=== PATIENT | female | born 1980 | race African-American/Black ===

== ENCOUNTER → 2016-12-09 | Outpatient (CLI) | payer OTHER ==
[~2016-12-09] MED LIST: CLR10 PO; HYDR-5688 PO; IBUP600T44 PO; OXYC-57 PO; PRENTAB26 PO
== END | disposition home or self-care (01) ==
LOC: C.LABSPEC 15:45
PROVIDERS: ATTEND Obstetrics & Gynecology
DX: Z34.83 Encounter for supervision of other normal pregnancy, third trimester (principal)

== ENCOUNTER 2016-12-26 19:23 | Outpatient (CLI) | payer OTHER ==
[~2016-12-26] VITALS: Ht 160 cm; Wt 74.0 kg
[~2016-12-26 19:23] MED LIST changes: -CLR10 PO; -HYDR-5688 PO; -OXYC-57 PO
[2016-12-26 20:16] VITALS: Ht 160 cm; Wt 74.0 kg
[2016-12-26] MEDS ORDERED: CLR10 PO (20:17)
== END 2016-12-26 20:51 | disposition home or self-care (01) ==
LOC: C.OPB 19:23 → C.LD 19:24 → C.OPB 20:51
PROVIDERS: ATTEND Obstetrics & Gynecology
DX: O62.9 Abnormality of forces of labor, unspecified (principal); O99.89 Other specified diseases and conditions complicating pregnancy, childbirth and the puerperium; N89.8 Other specified noninflammatory disorders of vagina; Z3A.38 38 weeks gestation of pregnancy

== ENCOUNTER 2016-12-27 09:14 | Inpatient (IN) | payer OTHER ==
[2016-12-27] VITALS (13 sets, daily range): BP systolic 98–108; BP diastolic 67–74; PULSE 73–96; TEMP 36.6–36.9; O2SAT 95–100; Ht 160 cm; Wt 89.5 kg
[~2016-12-27] VITALS: Ht 160 cm; Wt 89.5 kg
[~2016-12-27 09:14] MED LIST changes: +CLR10 PO; -IBUP600T44 PO
[2016-12-27] MEDS ORDERED: MoRPHine SULFATE PF 1 MG/ML 10 ML AMP/VIAL ONE (09:43)
[2016-12-27] MEDS ORDERED: FENTANYL CITRATE INJ 50 MCG/1 ML 2 ML VIAL ONE (09:43)
[2016-12-27] MEDS ORDERED: CITRIC ACID/SODIUM CITRATE 15 ML UDC PO ONE (09:45)
[2016-12-27] MEDS ORDERED: CEFAZOLIN IV 2,000 MG in DEXTROSE 5% 50ML 50 ML IV SCH (09:45)
[2016-12-27 10:03] LABS: BASO % 0.1 %; BASO ABS # 0.01 K/uL (0-0.2); COMPLETE YES; EOS % 0.3 %; HEMATOCRIT 34.2 % (37-47); IG% 0.9 %; LYMPH % 12.6 %; MEAN CELL VOLUME 78.8 fL (80-100); MEAN PLATELET VOLUME 9.1 fL (7.4-10.4); NEUT % 80.1 %; PLATELET COUNT 274 K/uL (130-400); RED BLOOD COUNT 4.34 M/uL (4.2-5.4); WHITE BLOOD COUNT 11.12 K/uL (4.8-10.8)
[2016-12-27] MEDS ORDERED: NALOXONE HCL INJ 0.08 MG in SYRINGE 1.8 ML IV PRN (10:25)
[2016-12-27] MEDS ORDERED: SODIUM CHLORIDE 0.9% 1000ML 1,000 ML IV PRN (10:25)
[2016-12-27] MEDS ORDERED: LACTATED RINGER'S 1000ML 500 ML IV PRN (10:25)
[2016-12-27] MEDS ORDERED: NALOXONE HCL INJ 1 MG in SODIUM CHLORIDE 0.9% 1000ML 1,000 ML IV PRN (10:25)
[2016-12-27] MEDS ORDERED: EpHEDrine SULFATE INJ 50 MG/ML AMP IV PRN (10:30)
[2016-12-27] MEDS ORDERED: ONDANSETRON INJ 2 MG/ML 2 ML VIAL IV PRN (10:30)
[2016-12-27] MEDS ORDERED: DiphenhydrAMINE HCL 50 MG/ML VIAL IV PRN ×2 (10:30)
[2016-12-27] MEDS ORDERED: NALOXONE HCL 0.4 MG/1 ML VIAL/CARP IV PRN (10:30)
[2016-12-27] MEDS ORDERED: METOCLOPRAMIDE HCL INJ 10 MG in SODIUM CHLORIDE 0.9% 50ML 50 ML IV PRN (10:30)
[2016-12-27] MEDS ORDERED: NALBUPHINE HCL INJ 10 MG/ML AMP IV PRN (10:30)
[2016-12-27] MEDS ORDERED: PROMETHAZINE HCL INJ 12.5 MG in SODIUM CHLORIDE 0.9% 50ML 50 ML IV PRN (10:30)
[2016-12-27] MEDS ORDERED: MoRPHine SULFATE PF 1 MG/ML 10 ML AMP/VIAL EPI PRN (10:30)
[2016-12-27] MEDS ORDERED: MoRPHine SULFATE 2 MG/ML CARP IV PRN (10:30)
[2016-12-27] MEDS ORDERED: NO NARCOTICS OR SEDATIVES SCH (10:30)
[2016-12-27] MEDS ORDERED: OXYTOCIN INJ 10 UNITS/ML VIAL ONE (10:40)
[2016-12-27] MEDS ORDERED: KETOROLAC TROMETHAMINE 30 MG/ML VIAL ONE (10:40)
[2016-12-27] MEDS ORDERED: ONDANSETRON INJ 2 MG/ML 2 ML VIAL ONE (10:40)
[2016-12-27] MEDS ORDERED: MAGNESIUM HYDROXIDE SUSP 30 ML UDC PO PRN (11:15)
--- NOTE | 2016-12-27 11:21 | [facility] Post Operative Brief Note ---
Immediate Operative Summary Operative Date Dec 27, 2016. Pre-Operative Diagnosis Intrauterine at 38 6/7 weeks, in labor, for repeat caesarean section Post-Operative Diagnosis Same as pre-op Procedure(s) Performed Repeat low uterine transverse incision caesarean section; delivery of live male infant at 1031 Surgeon Wayne Ge DO Patient Access Director Surgeon(s) Jaylyn Alvarado RN Estimated Blood Loss 500 ml Findings Viable male , Wt 8#8.5oz Apgars 8/9. Some adhesive disease, peritoneum to uterus, bladder to uterus. Normal appearing tubes/ovaries. Specimens A: Placenta: hold B: Cord blood C: Cord blood gases Drains thorpe, clear yellow Anesthesia spinal Complication(s) None Disposition L&D
--- NOTE | 2016-12-27 12:18 | OPERATIVE REPORT ---
DATE OF OPERATION: 12/27/2016 PREOPERATIVE DIAGNOSES: 1. Intrauterine at 38 weeks 6 days. 2. Spontaneous labor. 3. History of section x2. POSTOPERATIVE DIAGNOSIS: Same. PROCEDURE PERFORMED: Repeat low transverse section. ANESTHESIA: Spinal anesthesia. SURGEON: Alice Ge DO SEMICONDUCTOR WAFER INSPECTOR: Lela Alvarado RN. ESTIMATED BLOOD LOSS: 500 mL FINDINGS: Viable male with Apgars 8 and 9, weight 8 pounds 8-1/2 ounces. Some adhesive disease with peritoneum adhesed to the uterus and bladder adhesed to uterus, normal appearing tubes and ovaries. SPECIMENS: Placenta hold cord blood and cord gases. DRAINS: Diaz, clear yellow. ANESTHESIA: Spinal. COMPLICATIONS: None. DISPOSITION: Labor and delivery in stable and good condition. INDICATIONS FOR PROCEDURE: The patient is a 36-year-old G3, P2-0-0-2 at 38 weeks 6 days who was scheduled for repeat section; however, came in today in spontaneous labor. DESCRIPTION OF PROCEDURE: The patient was seen in the preoperative holding area where risks, benefits, alternatives to surgery were reviewed. She had previously signed informed consent in the office. This consent was resigned in today's charting. She was taken to the operating room where spinal anesthesia was introduced. She was prepared and draped in usual sterile fashion in the supine position with a leftward tilt, 2 grams of Ancef was infused prior to surgery. Timeout was confirmed. A Pfannenstiel skin incision was made with a scalpel and carried through to the underlying layer of fascia with the Bovie. The fascia was nicked at midline and using Bovie over hemostat technique, the incision was extended. The anterior aspect of the fascial incision was grasped with Emilie clamps x2, elevated off the underlying rectus abdominis muscle and dissected bluntly and sharply. In a similar fashion, the inferior aspect of the incision was dissected. The rectus muscles were at midline with hemostats and Bovie and the peritoneum was entered with hemostats. The bladder blade was placed. Adhesions on the anterior uterus were taken down with Metzenbaum scissors and the bladder flap was dissected. The bladder blade was replaced. A new scalpel was used to make a low transverse incision. This incision was extended cephalad caudad manually. The infant was delivered from a cephalic presentation. The head delivered followed by the shoulders and the body. No nuchal cord was noted. The cord was doubly clamped and cut, spontaneous cry was heard on the field. The baby was handed off to the pediatrics team. A cord segment was retained for cord gases. Cord blood was obtained. Placenta was delivered spontaneously intact with a 3-vessel cord. The uterus was exteriorized and cleared of all clots and debris. The hysterotomy incision was reapproximated using 0 Vicryl in a running locked stitch. There was a small extension into the cervix. This was also reapproximated using 0 Vicryl in a running stitch, a second layer of the same suture was used to imbricate the hysterotomy. The posterior uterus was evaluated and the uterus was returned to the abdomen. The gutters were cleared of all clots and debris. The hysterotomy incision was reinspected and noted to be hemostatic. The fascia was then reapproximated using 0 Vicryl in a running stitch, the subcutaneous tissue was closed using 2-0 plain gut in a running stitch and the skin was reapproximated using 4-0 Vicryl in a in a running subcuticular stitch. Steri-Strips were applied. The patient tolerated the procedure well and was taken to the recovery room in stable and good condition. I attest to the content of the Intraoperative Record and any orders documented therein. Any exceptio ns are noted below.
[2016-12-27] MEDS ORDERED: OXYTOCIN INJ 30 UNITS in LACTATED RINGER'S 1000ML 1,000 ML IV SCH (12:45)
[2016-12-27] MEDS: MEPERIDINE HCL 25 MG/ML CARP IV PRN ×2 (12:52→13:41)
--- NOTE | 2016-12-27 13:33 | Anesthesiology Progress Note ---
Anesthesia Post Op Note Date & Time Dec 27, 2016 at 13:33 Vital Signs Pain Intensity: 6.0 Notes Mental Status: alert / awake / arousable, participated in evaluation Pt Amnestic to Procedure: Yes Nausea / Vomiting: adequately controlled Pain: adequately controlled Airway Patency, RR, SpO2: stable & adequate BP & HR: stable & adequate Hydration State: stable & adequate Anesthetic Complications: no major complications apparent
[2016-12-27] MEDS: SIMETHICONE 80 MG CHEW PO SCH ×3 (13:42→19:39)
[2016-12-27] MEDS: KETOROLAC TROMETHAMINE 30 MG/ML VIAL IV. PRN (19:38)
[2016-12-27] MEDS: DOCUSATE SODIUM 100 MG CAP PO SCH (19:39)
[2016-12-28] VITALS (8 sets, daily range): BP systolic 90–95; BP diastolic 60–69; PULSE 86–108; TEMP 36.5–36.8; O2SAT 96–100
[2016-12-28] MEDS: KETOROLAC TROMETHAMINE 30 MG/ML VIAL IV. PRN (02:44)
[2016-12-28] MEDS ORDERED: DC INTRASPINAL MORPHINE ONE (04:00)
[2016-12-28] MEDS ORDERED: DiphenhydrAMINE HCL 50 MG/ML VIAL IV PRN (04:01)
[2016-12-28] MEDS ORDERED: ONDANSETRON INJ 2 MG/ML 2 ML VIAL IV PRN (04:01)
[2016-12-28] MEDS ORDERED: PROMETHAZINE HCL INJ 25 MG in SODIUM CHLORIDE 0.9% 50ML 50 ML IV PRN (04:01)
[2016-12-28] MEDS ORDERED: OXYCODONE/ACETAMINOPHEN 5-325 TAB PO PRN ×2 (04:01)
[2016-12-28] MEDS ORDERED: KETOROLAC TROMETHAMINE 30 MG/ML VIAL IV. PRN (04:01)
[2016-12-28 06:24] LABS: BASO % 0.1 %; BASO ABS # 0.01 K/uL (0-0.2); COMPLETE YES; EOS % 0.5 %; HEMATOCRIT 27.8 % (37-47); IG% 0.4 %; LYMPH % 10.2 %; LYMPH ABS # 1.41 K/uL (1.2-3.4); MEAN CELL VOLUME 78.8 fL (80-100); MEAN CORPUSCULAR HEMOGLOBIN 26.1 pg (25-34); MEAN CORPUSCULAR HGB CONC 33.1 g/dl (32-36); MEAN PLATELET VOLUME 8.7 fL (7.4-10.4); MONO % 7.8 %; PLATELET COUNT 186 K/uL (130-400); RED BLOOD COUNT 3.53 M/uL (4.2-5.4); WHITE BLOOD COUNT 13.89 K/uL (4.8-10.8)
[2016-12-28] MEDS: SIMETHICONE 80 MG CHEW PO SCH ×4 (08:06→20:00)
[2016-12-28] MEDS: DOCUSATE SODIUM 100 MG CAP PO SCH ×2 (08:06→21:42)
[2016-12-28] MEDS: IBUPROFEN 600 MG TAB PO PRN ×3 (08:07→21:43)
--- NOTE | 2016-12-28 08:39 | Progress Note ---
Subjective Dec 28, 2016. Subjective conversation w/ patient, physical exam Ambulation: ambulating normally Voiding: no voiding problems Passing Gas: Yes Diet Tolerance: Regular Diet Lochia: Small Feeding Type: Breast Feeding Pain: 01/09 Review of Systems Constitutional: No chills, No fever, No weight loss Respiratory: No cough, No shortness of breath Cardiac: No chest pain, No claudication Objective Vital Signs Date Time Temp Pulse Resp B/P Pulse Ox O2 Delivery O2 Flow Rate FiO2 12/28/16 07:30 Room Air 12/28/16 07:30 36.7 86 20 92/60 100 Room Air 12/28/16 03:45 36.8 87 18 90/61 97 Room Air 12/28/16 03:30 18 98 12/28/16 02:30 16 97 12/28/16 01:30 16 96 12/28/16 00:30 16 96 12/27/16 23:35 100 Room Air 12/27/16 23:35 36.6 96 18 100/70 100 Room Air 12/27/16 23:35 18 100 12/27/16 22:30 18 98 12/27/16 21:30 16 95 12/27/16 20:30 18 97 12/27/16 20:15 36.6 83 18 98/67 98 Room Air 12/27/16 19:30 18 98 12/27/16 18:30 18 100 12/27/16 17:30 18 98 12/27/16 16:30 16 100 12/27/16 15:45 36.9 73 16 102/71 98 Room Air 12/27/16 15:45 98 Room Air 12/27/16 15:30 16 98 12/27/16 15:00 20 98 12/27/16 14:00 36.9 82 16 108/74 95 Room Air 12/27/16 14:00 16 98 12/27/16 14:00 95 Room Air Physical Exam General Appearance: WELL-APPEARING, NO APPARENT DISTRESS Respiratory/Chest: lungs clear, no accessory muscle use Cardiovascular: regular rate, rhythm, + systolic murmur (soft 2/6 over aortic area) Fundus: Firm, Non-Tender, Relation to Umbilicus (at the umbilicus) Incision Description: Clean, Dry & Intact Extremities: non-tender, no calf tenderness Laboratory Results Last 24 Hours Test 12/27/16 09:50 12/28/16 05:50 White Blood Count 11.12 K/uL 13.89 K/uL Red Blood Count 4.34 M/uL 3.53 M/uL Hemoglobin 11.3 g/dL 9.2 g/dL Hematocrit 34.2 % 27.8 % Mean Corpuscular Volume 78.8 fL 78.8 fL Mean Corpuscular Hemoglobin 26.0 pg 26.1 pg Mean Corpuscular Hemoglobin Concent 33.0 g/dl 33.1 g/dl Platelet Count 274 K/uL 186 K/uL Mean Platelet Volume 9.1 fL 8.7 fL Neutrophils (%) (Auto) 80.1 % 81.0 % Lymphocytes (%) (Auto) 12.6 % 10.2 % Monocytes (%) (Auto) 6.0 % 7.8 % Eosinophils (%) (Auto) 0.3 % 0.5 % Basophils (%) (Auto) 0.1 % 0.1 % Neutrophils # (Auto) 8.91 K/uL 11.26 K/uL Lymphocytes # (Auto) 1.40 K/uL 1.41 K/uL Monocytes # (Auto) 0.67 K/uL 1.09 K/uL Eosinophils # (Auto) 0.03 K/uL 0.07 K/uL Basophils # (Auto) 0.01 K/uL 0.01 K/uL RDW Standard Deviation 40.4 fL 41.1 fL RDW Coefficient of Variation 14.2 % 14.4 % Immature Granulocyte % (Auto) 0.9 % 0.4 % Immature Granulocyte # (Auto) 0.10 K/uL 0.05 K/uL Assessment and Plan Post-Op Day#: 1 Continue Routine Care: s/p C section Day 1 - vitals reviewed and wnl - Hgb 9.2 today - blood: O+, GBS-, Rubella immune - encourage ambulation, monitor lochia, and encourage breast feeding - patient doing well clinically - will change pain meds to norco as patient feels uneasy with percocet - CONTINUE ROUTINE POST C SECTION CARE Resident Physician Supervision Note: I was present with Dr. Phillips during the history and exam. I discussed the case with the resident and agree with the findings and plan as documented in the note. Any exceptions or clarifications are listed here: POD#1 doing well. Routine postop care. Increase ambulation and PO hydration today. Documented By: Alice Ge
[2016-12-28] MEDS: HYDROCODONE/ACETAMOPHEN 5/325MG TAB PO PRN ×3 (10:31→21:43)
[2016-12-28] MEDS ORDERED: BISACODYL 5 MG TABEC PO ONE (22:00)
[2016-12-29] MEDS: HYDROCODONE/ACETAMOPHEN 5/325MG TAB PO PRN ×4 (02:02→20:12)
[2016-12-29] MEDS: IBUPROFEN 600 MG TAB PO PRN ×4 (02:02→20:13)
[2016-12-29] MEDS ORDERED: BISACODYL 10 MG SUPP PR PRN (07:00)
[2016-12-29 07:32] VITALS: BP 89/61; PULSE 85; TEMP 36.4; O2SAT 99
--- NOTE | 2016-12-29 07:32 | Progress Note ---
Subjective Dec 29, 2016. Subjective conversation w/ patient, physical exam Ambulation: ambulating normally Voiding: no voiding problems Passing Gas: Yes Diet Tolerance: Regular Diet Lochia: Small Feeding Type: Breast Feeding Review of Systems Constitutional: No chills, No fever Respiratory: No cough, No shortness of breath Cardiac: No chest pain, No claudication Objective Vital Signs Date Time Temp Pulse Resp B/P Pulse Ox O2 Delivery O2 Flow Rate FiO2 12/28/16 23:30 36.6 91 20 95/66 Room Air 12/28/16 23:30 99 Room Air 12/28/16 15:45 36.5 108 20 95/69 Room Air 12/28/16 15:45 Room Air 12/28/16 07:30 Room Air 12/28/16 07:30 36.7 86 20 92/60 100 Room Air Physical Exam General Appearance: WELL-APPEARING, NO APPARENT DISTRESS Respiratory/Chest: lungs clear, no accessory muscle use Cardiovascular: regular rate, rhythm, no murmur Fundus: Firm, Non-Tender, Relation to Umbilicus (1 cm below umbilicus) Incision Description: Clean, Dry & Intact Extremities: non-tender, no calf tenderness Assessment and Plan Post-Op Day#: 2 Continue Routine Care: s/p C section Day 2 - vitals reviewed and wnl - Hgb 9.2 yesterday - blood: O+, GBS-, Rubella immune - encourage ambulation, monitor lochia, and encourage breast feeding - patient doing well clinically - CONTINUE ROUTINE POST C SECTION CARE Resident Physician Supervision Note: I was present with Dr. Phillips during the history and exam. I discussed the case with the resident and agree with the findings and plan as documented in the note. Any exceptions or clarifications are listed here: [None] Documented By: Lidya Harrison
[2016-12-29] MEDS: SIMETHICONE 80 MG CHEW PO SCH ×4 (08:18→20:11)
[2016-12-29] MEDS: DOCUSATE SODIUM 100 MG CAP PO SCH ×2 (08:18→20:11)
[2016-12-29 09:19] VITALS: O2SAT 99
[2016-12-29] MEDS: LORATADINE 10 MG TAB PO SCH (13:45)
[2016-12-29 16:20] VITALS: BP 109/76; PULSE 101; TEMP 36.5
[2016-12-30 00:20] VITALS: BP 122/81; PULSE 79; TEMP 36.4
[2016-12-30] MEDS: HYDROCODONE/ACETAMOPHEN 5/325MG TAB PO PRN ×3 (00:28→10:41)
[2016-12-30] MEDS: IBUPROFEN 600 MG TAB PO PRN ×3 (00:28→10:41)
[2016-12-30] MEDS ORDERED: OXYC-57 PO (07:10)
--- NOTE | 2016-12-30 07:13 | Progress Note ---
Subjective Dec 30, 2016. Subjective conversation w/ patient, physical exam Ambulation: ambulating normally Voiding: no voiding problems Passing Gas: Yes Diet Tolerance: Regular Diet Lochia: Small Feeding Type: Breast Feeding Review of Systems Constitutional: No chills, No fever Respiratory: No cough, No shortness of breath Cardiac: No chest pain, No claudication Objective Vital Signs Date Time Temp Pulse Resp B/P Pulse Ox O2 Delivery O2 Flow Rate FiO2 12/30/16 00:20 Room Air 12/30/16 00:20 36.4 79 20 122/81 Room Air 12/29/16 16:20 36.5 101 20 109/76 12/29/16 16:20 Room Air 12/29/16 09:19 99 Room Air 12/29/16 08:25 Room Air 12/29/16 07:32 36.4 85 15 89/61 99 Physical Exam General Appearance: WELL-APPEARING, NO APPARENT DISTRESS Respiratory/Chest: lungs clear, no accessory muscle use Cardiovascular: regular rate, rhythm, no murmur Fundus: Firm, Non-Tender, Relation to Umbilicus (AT UMBILICUS) Extremities: non-tender, no calf tenderness Assessment and Plan Post-Op Day#: 3 Continue Routine Care: s/p C section Day 3 - vitals reviewed and wnl - Hgb 9.2 two days ago - blood: O+, GBS-, Rubella immune - encourage ambulation, monitor lochia, and encourage breast feeding - patient doing well clinically - patient counselled on discharge instructions - PATIENT DISCHARGED TODAY Resident Physician Supervision Note: I was present with Dr. Phillips during the history and exam. I discussed the case with the resident and agree with the findings and plan as documented in the note. Any exceptions or clarifications are listed here: Doing well, plan d/ c. Documented By: Jazzy Kohler
[2016-12-30 08:00] VITALS: BP 111/76; PULSE 77; TEMP 36.5; O2SAT 99
[2016-12-30] MEDS: DOCUSATE SODIUM 100 MG CAP PO SCH (08:30)
[2016-12-30] MEDS: SIMETHICONE 80 MG CHEW PO SCH ×2 (08:31→12:37)
--- NOTE | 2016-12-30 08:33 | Discharge Instructions ---
Discharge Instructions Date of Service Dec 30, 2016. Admission Reason for Admission: Spontaneous Onset Of Labor Discharge Discharge Diagnosis / Problem: C- section Discharge Goals Goal(s): Routine recovery after delivery Medications Continue Dispensed Medications: supercream, dermaplast, tucks, lansinoh Activity Recommendations Activity Limitations: per Instructions/Follow-up section . Instructions / Follow-Up Instructions / Follow-Up ACTIVITY RECOMMENDATIONS: * Gradual return to full activity over the next 2-3 weeks. * No lifting - nothing heavier than baby over the next 2-3 weeks. * Do not engage in vigorous exercise, sexual activity or sports until cleared by your physician. * Do not drive or operate any motorized equipment until cleared by your physician. * You may shower/bathe daily. MEDICATIONS: For discomfort or pain, you may use Acetaminophen (Tylenol), Ibuprofen (Advil), or Naproxen (Aleve) following the package directions. For constipation you may use Colace following the package directions. BREAST CARE: If you are not breast feeding: * Wear a supportive bra 24 hours a day for one to two weeks. * Avoid stimulating your breasts and nipples as much as possible during the first few weeks after delivery. * When taking a shower, have the warm water hit your back, not breasts. * When your breasts feel full, apply ice packs. Usually three to four times a day helps ease the discomfort. * Take a mild pain medication (Tylenol / Motrin) when you are uncomfortable. If breast feeding: * Use breast milk to lubricate nipples. Lansinoh cream may be used for sore nipples. You do not need to remove cream prior to breast feeding. If using a different brand of cream, check the label for directions regarding removal of cream prior to nursing. * Wear a supportive bra. * If having problems with breasts or breast feeding, call a cancer program consultant or your health care provider. EPISIOTOMY CARE: After delivery, if you have an episiotomy (stitches), the following steps will ease discomfort and aid healing. * For the first 24 hours after delivery, place ice packs next to your episiotomy to help reduce swelling. * After the first 24 hour-period, sitz baths, either portable or in the tub, are suggested. A shower with a shower arm sprayed over the episiotomy may be comforting. * Nohemy care should be done after each voiding and bowel movement. Squirt warm water from a plastic bottle over the perineum (region of the body between the anus and urinary opening) and pat dry. * Use Dermoplast to ease discomfort. Shake container. [place] directly over the episiotomy. Place a Tucks on a clean sanitary pad next to your episiotomy. SPECIAL CARE INSTRUCTIONS: When you are discharged from the hospital, it is important for you to follow the instructions listed below: * During the first week at home, you should be able to care for yourself and your baby. In addition, the usual light household activities are encouraged. * Limit your activities to the way you feel. Do not try to clean the house or move furniture. Be sensible. * If you actively engage in sports and have done so up until the time of your delivery, you may resume these activities as soon as you feel able. This may take up to one month or even longer. Use good judgment. * Continue to take your vitamins for at least six weeks after the of your baby. * Your diet need not be limited unless you were on a special diet before your delivery. Breast-feeding mothers need around 2500 calories per day and at least 64-80 ounces of fluid per day (8 to 10 glasses). * You should eat foods from the four major food groups. Crash diets or fad diets are to be avoided. Eating lean meats, fresh fruits and vegetables, low-fat dairy products, high fiber foods and a regular exercise program, will help you get back to your pre- weight without putting your health at risk. * Constipation is sometimes a problem after delivery. Take a mild laxative as needed. If breast feeding, Milk of Magnesia is acceptable to use. You may use a suppository or Fleets enema if no episiotomy. * A daily shower or tub bath is suggested. Be sure to thoroughly and gently dry the perineum. * A bloody vaginal discharge will usually continue until around four weeks post . A small amount of bleeding may continue for as long as six weeks. Vaginal discharge changes from the bright red bleeding after delivery to pink then brownish and finally yellowish-pink before becoming white and disappearing. * Bleeding may increase with activity. Your first period may come in 4-8 weeks. If you are breast feeding, your period may be delayed even longer. * [place] (sex) can begin whenever both you and your partner feel comfortable and do not have any form of genital infection. It is recommended that you wait at least six weeks for internal and external healing to occur. If you have questions, please talk to your health care practitioner. A condom should be used to prevent infection and . * Foreplay, gentle intercourse and lubrication is very important the first several times to prevent pain. A water-based lubricant such as K-Y jelly or Astroglide may be used. * If you have RH negative blood and your baby is RH positive, you will receive RHOGAM by injection prior to discharge. The nurse will give you a card to keep with you that has the date and place that you received RHOGAM after delivery. * During your care, you had a Rubella screen done to check for the presence of rubella antibodies in your blood. If your test was negative, you will receive a Rubella vaccine prior to discharge. This vaccine may cause a fever, soreness at the injection site and flu-like symptoms. If these symptoms persist, notify your health care practitioner. is not advised for one month after a Rubella vaccine. * Verbalizes understanding of car seat law as reviewed with patient nursing. * Car Seat hand-out given and reviewed with patient by nursing. * Shaken baby information reviewed with patient by nursing. Call you doctor if: * Heavy bleeding (saturating several pads an hour) or passing clots the size of your fist. * A fever >101 degrees F (38.3 degrees C) on two occasions four hours apart and /or chills. * Unusual pain in the pelvic or vaginal areas. * "Baby Blues" lasting longer than two weeks. If you have any questions or concerns, call your health care practitioner at . FOLLOW UP VISIT: * Please call the office at to schedule a 6 week examination. It is important you keep this appointment. It is important for you to make arrangements for either yearly or twice yearly check-ups thereafter. Current Hospital Diet Patient's current hospital diet: Regular OB Diet Discharge Diet Recommended Diet: Regular Diet Procedures Procedures Performed: Repeat low uterine transverse incision caesarean section; delivery of live male at 1031 Pending Studies Studies pending at discharge: no Medical Emergencies . Who to Call and When: Medical Emergencies: If at any time you feel your situation is an emergency, please call 911 immediately. . Non-Emergent Contact Non-Emergency issues call your: Primary Care Provider, Memory Care Program Director . . "Provider Documentation" section prepared by Alcides Phillips. VTE Core Measure Inpt VTE Proph given/why not?: Treatment not indicated
[2016-12-30] MEDS: LORATADINE 10 MG TAB PO SCH (08:47)
[2016-12-30] MEDS ORDERED: HYDR-5688 PO (09:05)
[2016-12-30 12:45] VITALS: BP_DIAS 76; PULSE 77; TEMP 36.5
--- NOTE | 2017-01-14 01:15 | DISCHARGE SUMMARY ---
ADMISSION DIAGNOSES: 1. Intrauterine at 38 weeks 6 days. 2. Spontaneous labor. 3. History of section x2. POST DELIVERY DIAGNOSES: Same.. DISCHARGE DIAGNOSES: Same. PROCEDURE: Repeat low transverse section. COURSE OF STAY: The patient presented to labor and delivery in spontaneous labor and while she was scheduled for a repeat section at a future date, this was performed at the time of admission due to spontaneous labor. FINDINGS: A viable male , Apgars 8 and 9, weight 8 pounds 8-1/2 ounces with some adhesive disease with peritoneum adhesed to the uterus with normal appearing tubes and ovaries. Following the section, the patient was recovered well in stable and good condition. CONDITION ON DISCHARGE: Stable and good.' MEDICATIONS: Percocet and Motrin. ACTIVITY: No heavy lifting and pelvic rest. CONDITION ON DISCHARGE: Stable and good. Follow up in office in 6 weeks.
== END 2016-12-30 13:20 | disposition home or self-care (01) | DRG 766 ==
LOC: C.LD 09:14 → C.OPB 09:14 → C.LD 09:37 → C.OPB 09:37 → C.OBG 13:52
PROVIDERS: ADMIT Obstetrics & Gynecology; ATTEND Obstetrics & Gynecology
PROC: 10D00Z1 Extraction of Products of Conception, Low, Open Approach (ICD-10-PCS; principal; 2016-12-27 09:55)
DX: O34.211 Maternal care for low transverse scar from previous cesarean delivery (principal); O75.82 Onset (spontaneous) of labor after 37 completed weeks of gestation but before 39 completed weeks gestation, with delivery by (planned) cesarean section; Z37.0 Single live birth; Z3A.38 38 weeks gestation of pregnancy

== ENCOUNTER → 2017-02-10 | Outpatient (CLI) | payer OTHER ==
[~2017-02-10] MED LIST changes: +HYDR-5688 PO; +OXYC-57 PO
--- NOTE | 2017-02-10 15:32 | DIAGNOSTIC IMAGING REPORT ---
BILATERAL LOWER EXTREMITY VENOUS DOPPLER HISTORY: Pain. Edema. PAIN AND SWELLING OF LOWER LEG M79.669 COMPARISON STUDY: None. FINDINGS: There is normal compressibility, flow, and augmentation within the bilateral lower extremity deep venous systems. IMPRESSION: No DVT within the right or left lower extremity. Electronically signed by: Trevin Tejada M.D. 02/10/2017 3:31 PM Dictated Date/Time: 02/10/2017 3:31 PM
== END | disposition home or self-care (01) ==
LOC: C.ULTR 15:00
PROVIDERS: ATTEND Obstetrics & Gynecology
DX: M79.669 Pain in unspecified lower leg (principal)